=== PATIENT | male | born 1965 | race Caucasian/White ===

== ENCOUNTER 2021-06-22 13:02 | Emergency (ER) | payer SELFPAY ==
[~2021-06-22] VITALS: Ht 187.9 cm; Wt 117.9 kg
[2021-06-22 18:14] LABS: BASO % 0.2 % (0.0-1.0); HEMATOCRIT 44.7 % (42.0-52.0); LYMPH # 0.9 10*3/uL (1.3-4.4); LYMPH % 19.6 % (27.0-41.0); MEAN CELL VOLUME 86.5 fl (80.0-94.0); MEAN CORPUSCULAR HGB CONC 34.7 g/dl (33.0-37.0); MEAN PLATELET VOLUME 12.1 fl (9.6-12.3); MONO # 0.4 10*3/uL (0.1-1.0); MONO % 8.2 % (3.0-9.0); NEUT # 3.2 10*3/uL (2.3-7.9); NEUT % 71.3 % (47.0-73.0); PLATELET COUNT AUTOMATED 161 10*3/uL (130-400); RED BLOOD COUNT 5.17 10*6/uL (4.50-5.90); RED CELL DISTRI WIDTH 12.1 % (0-14.5); WHITE BLOOD COUNT 4.5 10*3/uL (4.8-10.8)
[2021-06-22 18:33] LABS: ALBUMIN 3.7 gm/dl (3.1-4.5); ALKALINE PHOSPHATASE 53 U/L (45-117); BUN 15 mg/dl (7-24); CHLORIDE 99 mmol/L (98-107); CREATININE 1.04 mg/dL (0.70-1.30); POTASSIUM 3.9 mmol/L (3.5-5.1); SGOT/AST 45 IU/L (3-35); SGPT/ALT 61 U/L (12-78); SODIUM 133 mmol/L (136-145)
[2021-06-22] MEDS ORDERED: PREDNISONE20 M1 PO (19:15)
[2021-06-22] MEDS ORDERED: PROVENTIL HFA6.7 GM INH (19:15)
== END 2021-06-22 19:18 | disposition home or self-care (01) ==
LOC: ED 13:02
PROVIDERS: Physician Assistant
DX: U07.1 COVID-19 (principal); Z87.891 Personal history of nicotine dependence

== ENCOUNTER 2024-09-03 18:31 | Emergency (ER) | payer BC ==
[~2024-09-03] VITALS: Ht 187.9 cm; Wt 113.4 kg
[~2024-09-03 18:31] MED LIST: PREDNISONE20 M1 PO; PROVENTIL HFA6.7 GM INH
[2024-09-03] MEDS ORDERED: ELIQUIS5 M1 PO ×2 (18:44→18:45)
[2024-09-03] MEDS ORDERED: CARVEDILOL6.25 MG PO (18:44)
[2024-09-03] MEDS ORDERED: PREDNISONE20 M1 PO (19:58)
[2024-09-03] MEDS ORDERED: ZITHROMAX250 MG PO (19:58)
[2024-09-03] MEDS ORDERED: methylPREDNISolone sod succ 125 MG VIAL IM ONE (20:00)
== END 2024-09-03 20:02 | disposition home or self-care (01) ==
LOC: ED 18:31
DX: J06.9 Acute upper respiratory infection, unspecified (principal); I10 Essential (primary) hypertension

== ENCOUNTER 2025-09-05 07:24 | Emergency (ER) | payer BC ==
[~2025-09-05] VITALS: Ht 177.8 cm; Wt 97.5 kg
[~2025-09-05 07:24] MED LIST changes: +CARVEDILOL6.25 MG PO; +ELIQUIS5 M1 PO; +ZITHROMAX250 MG PO
[2025-09-05] MEDS ORDERED: TRANEXAMIC ACID 1,000 MG/10 ML VIAL NAS ONE (07:35)
[2025-09-05] MEDS ORDERED: EZALLOR SPRINKL20 MG PO (07:45)
== END 2025-09-05 09:47 | disposition home or self-care (01) ==
LOC: ED 07:24
DX: R04.0 Epistaxis (principal); Z79.899 Other long term (current) drug therapy